=== PATIENT | female | born 1985 | race Caucasian/White ===

== ENCOUNTER → 2017-04-26 | Outpatient (CLI) | payer OTHER ==
[~2017-04-26] MED LIST: CLARITIN10 MG PO; NKHM; PERCOCET 325 MG1 TA6 PO; ZITHROMAX Z PA250 MG PO
[2017-04-26 11:34] LABS: BASO # 0.1 10*3/uL (0.0-0.1); BASO % 0.7 % (0.0-1.0); EOS # 0.1 10*3/uL (0.0-0.4); EOS % 0.8 % (1.0-4.0); HEMATOCRIT 41.8 % (37.0-47.0); LYMPH # 2.2 10*3/uL (1.3-4.4); LYMPH % 25.9 % (27.0-41.0); MEAN CORPUSCULAR HGB 31.8 pg (27.0-31.0); MEAN CORPUSCULAR HGB CONC 33.5 g/dl (33.0-37.0); MEAN PLATELET VOLUME 11.3 fl (9.6-12.3); MONO # 0.4 10*3/uL (0.1-1.0); MONO % 5.1 % (3.0-9.0); NEUT # 5.7 10*3/uL (2.3-7.9); NEUT % 67.3 % (47.0-73.0); PLATELET COUNT AUTOMATED 220 10*3/uL (130-400); RED CELL DISTRI WIDTH 12.9 % (0-14.5); WHITE BLOOD COUNT 8.4 10*3/uL (4.8-10.8)
[2017-04-26 11:56] LABS: ALBUMIN 4.2 gm/dl (3.1-4.5); ALKALINE PHOSPHATASE 41 U/L (45-117); BUN 6 mg/dl (7-24); CHLORIDE 110 mmol/L (98-107); CREATININE 0.85 mg/dL (0.55-1.02); FREE T4 1.12 ng/dl (0.76-1.46); IRON 129 ug/dL (50-170); POTASSIUM 3.4 mmol/L (3.5-5.1); SGOT/AST 13 IU/L (3-35); SGPT/ALT 15 U/L (12-78); SODIUM 143 mmol/L (136-145); TOTAL IRON BINDING CAPACITY 304 ug/dl (250-450); TOTAL PROTEIN 7.5 gm/dL (6.4-8.2)
[2017-04-26 12:43] LABS: FERRITIN 43.5 ng/mL (10.0-291.0)
== END | disposition home or self-care (01) ==
LOC: LAB 10:54
PROVIDERS: Internal Medicine
DX: R53.83 Other fatigue (principal)

== ENCOUNTER → 2017-08-02 | Outpatient (CLI) | payer OTHER ==
[2017-08-03 08:11] LABS: H PYLORI IGG AB 162289 0.13 (0.00-0.79)
[2017-08-03 16:09] LABS: H.PYLORI IGM <9.0 units (0.0-8.9); H.PYLORI IgA 163170 <9.0 units (0.0-8.9)
[2017-08-04 15:08] LABS: t-TRANSGLUTAMINASE (tTG) IGA 10 U/mL (0-3)
== END | disposition home or self-care (01) ==
LOC: LAB 11:15
PROVIDERS: Internal Medicine
DX: R14.0 Abdominal distension (gaseous) (principal)

== ENCOUNTER → 2017-10-22 | Day surgery (SDC) | payer OTHER ==
[2017-10-18 10:27] LABS: BILIRUBIN NEGATIVE (NEGATIVE); BLOOD NEGATIVE (NEGATIVE); CLARITY CLEAR (CLEAR); COLOR YELLOW (YELLOW); GLUCOSE NEGATIVE (NEGATIVE); KETONE NEGATIVE (NEGATIVE); LEUKO ESTERASE NEGATIVE (NEGATIVE); NITRITE NEGATIVE (NEGATIVE); PH 5.5 (5.0-9.0); UROBILINOGEN 0.2 E.U./dl (0.2-1.0)
[2017-10-18 10:28] LABS: BASO % 0.5 % (0.0-1.0); EOS # 0.2 10*3/uL (0.0-0.4); EOS % 2.2 % (1.0-4.0); HEMATOCRIT 41.9 % (37.0-47.0); HEMOGLOBIN 13.8 g/dl (12.0-16.0); LYMPH % 25.1 % (27.0-41.0); MEAN CELL VOLUME 96.5 fl (81.0-99.0); MEAN CORPUSCULAR HGB 31.8 pg (27.0-31.0); MEAN CORPUSCULAR HGB CONC 32.9 g/dl (33.0-37.0); MONO # 0.5 10*3/uL (0.1-1.0); MONO % 6.4 % (3.0-9.0); NEUT # 5.1 10*3/uL (2.3-7.9); NEUT % 65.7 % (47.0-73.0); PLATELET COUNT AUTOMATED 213 10*3/uL (130-400); RED BLOOD COUNT 4.34 10*6/uL (4.10-5.10); RED CELL DISTRI WIDTH 12.9 % (0-14.5); WHITE BLOOD COUNT 7.8 10*3/uL (4.8-10.8)
[2017-10-18 10:59] LABS: BUN 7 mg/dl (7-24); CHLORIDE 110 mmol/L (98-107); CREATININE 0.88 mg/dL (0.55-1.02); POTASSIUM 3.7 mmol/L (3.5-5.1); SODIUM 143 mmol/L (136-145)
[2017-10-18 11:04] LABS: INTERNATIONAL NORM RATIO 0.9 (2.0-3.5)
[~2017-10-22] VITALS: Ht 167.6 cm; Wt 68.0 kg
[2017-10-22] VITALS (8 sets, daily range): BP systolic 105–115; BP diastolic 62–77
[~2017-10-22] MED LIST changes: +NORCO 5-325 TA1 EACH PO
--- NOTE | ~2017-10-22 | O ---
[place], [place] OPERATIVE NOTE NAME: DIANNA ORDOÑEZ UNIT #: [id number] ROOM: DOCTOR: HOWIE LUIS MD BIRTHDATE: [birth year] DOS: 10/22/2017 PREOPERATIVE DIAGNOSIS: Umbilical hernia. POSTOPERATIVE DIAGNOSIS: Umbilical hernia. PROCEDURE: Umbilical hernia repair (primary). SURGEON: Howie Luis MD SUBM[employer]ABLE EQUIPMENT TECHNICIAN: VINNY. ANESTHESIA: General with endotracheal intubation. INDICATIONS: This is a 32-year-old female with a symptomatic umbilical hernia, who is here for the above-mentioned procedure. The procedure and its complications were explained to the patient in detail preoperatively. Complications that were discussed included but were not limited to bleeding, infection, hematoma/seroma/abscess formation, prolonged postoperative pain, and recurrence. She agreed to proceed. DESCRIPTION OF PROCEDURE: After identifying the patient, the patient was brought to the operating suite and laid in the supine position. After induction of general anesthesia, the parts were painted and draped in the usual sterile fashion and a time-out procedure was called. An incision was made with the help of a knife in a circumferential fashion in the lower part of the umbilicus. The skin and the subcutaneous tissue were incised in the line of the incision. The umbilical hernial sac was then dissected away with the help of electrocautery from the surrounding tissue. It was then excised in its entirety with the help of electrocautery as well and sent for histopathological diagnosis. At this point, the size of the defect was measured and was 0.2 cm in diameter. At this point, a repair of the defect was performed with the help of interrupted [id number] #1 PDS. Saline was used for irrigation. The subcutaneous tissue was then approximated with the help of 3-0 Vicryl in an interrupted fashion and the edges of the skin were infiltrated with 1% local lidocaine and approximated with the help of 4-0 Vicryl in a subcuticular running fashion. Dressing was placed. The patient tolerated the procedure well. She was extubated uneventfully and brought back to the recovery room in stable fashion. There were no complications. Dr. Howie Luis, the attending surgeon, was present throughout the operating case. [place], [place] OPERATIVE NOTE NAME: DIANNA ORDOÑEZ UNIT #: [id number] ROOM: DOCTOR: HOWIE LUIS MD BIRTHDATE: [birth year] Howie Luis MD CM:OPRECORD:OPERATIVE NOTE [id number] HOWIE LUIS MD 10/22/17 0852 interface
== END | disposition home or self-care (01) ==
LOC: SDC 10-18 10:15
PROVIDERS: Surgery
DX: K42.9 Umbilical hernia without obstruction or gangrene (principal); I10 Essential (primary) hypertension; K21.9 Gastro-esophageal reflux disease without esophagitis; F17.210 Nicotine dependence, cigarettes, uncomplicated; Z82.49 Family history of ischemic heart disease and other diseases of the circulatory system; Z82.3 Family history of stroke; Z80.9 Family history of malignant neoplasm, unspecified; Z98.890 Other specified postprocedural states; Z79.01 Long term (current) use of anticoagulants

== ENCOUNTER → 2018-03-18 | Outpatient (CLI) | payer OTHER | END | disposition home or self-care (01) | LOC: RAD 16:08 | DX: M25.561 Pain in right knee (principal); M25.562 Pain in left knee ==

== ENCOUNTER → 2022-03-03 | Outpatient (CLI) | payer OTHER | END | disposition home or self-care (01) | LOC: LAB 15:08 | PROVIDERS: ATTEND Internal Medicine | DX: R50.9 Fever, unspecified (principal) ==

== ENCOUNTER 2023-11-18 20:45 | Emergency (ER) | payer BC ==
[~2023-11-18] VITALS: Ht 167.6 cm; Wt 64.0 kg
[2023-11-18] MEDS ORDERED: PREDNISONE10 MG PO (21:17)
[2023-11-18] MEDS ORDERED: diphenhydrAMINE hydrochloride 25 MG CAP PO ONE (21:20)
[2023-11-18] MEDS ORDERED: methylPREDNISolone sod succ 125 MG VIAL IM ONE (21:20)
== END 2023-11-18 21:22 | disposition home or self-care (01) ==
LOC: ED 20:45
DX: T78.1XXA Other adverse food reactions, not elsewhere classified, initial encounter (principal); R21 Rash and other nonspecific skin eruption; Z98.890 Other specified postprocedural states; X58.XXXA Exposure to other specified factors, initial encounter